=== PATIENT | female | born 1965 | race Two or more races ===

== ENCOUNTER 2022-07-31 21:11 | Emergency (ER) | payer OTHER ==
[~2022-07-31] VITALS: Ht 152.4 cm; Wt 73.6 kg
[2022-07-31] MEDS ORDERED: IBUP800T27 PO (23:40)
[2022-08-01 03:12] VITALS: BP 121/72
== END 2022-08-01 01:19 | disposition home or self-care (01) ==
LOC: ER 21:11
DX: S93.402A Sprain of unspecified ligament of left ankle, initial encounter (principal); S90.32XA Contusion of left foot, initial encounter; I10 Essential (primary) hypertension; Z88.0 Allergy status to penicillin; W18.39XA Other fall on same level, initial encounter; Y93.89 Activity, other specified; Y92.89 Other specified places as the place of occurrence of the external cause; Y99.8 Other external cause status
CPT/HCPCS: 73610; 73630